=== PATIENT | female | born 2000 | race American Indian/Alaskan Native ===

== ENCOUNTER 2018-05-17 20:17 | Emergency (ER) | payer SELFPAY ==
[2018-05-17] MEDS ORDERED: NACL 0.9% 1000 ML 1,000 ML IV ONE (20:28)
[2018-05-17 21:03] LABS: Bacteria,Urine 1+ /HPF (Negative); Bilirubin,Urine NEG (Negative); Blood,Urine NEG (Negative); Color,Urine Yellow (Yellow); HCG Qualitative,Urine Negative (Negative); Protein,Urine <15 mg/dL mg/dL (Negative); Urobilinogen,Urine < 2.0 mg/dL (<2.0)
[2018-05-17 21:04] LABS: Basophils # (Auto) 0.1 K/mm3 (0.0-0.1); Basophils % (Auto) 0.9 % (0.0-1.8); Eosinophils # (Auto) 0.1 K/mm3 (0.0-0.4); Eosinophils % (Auto) 1.5 % (0.0-4.3); Hematocrit 37.2 % (30.3-42.9); Hemoglobin 12.5 gm/dl (10.1-14.3); Lymphocytes # (Auto) 1.6 K/mm3 (1.2-5.4); Lymphocytes % (Auto) 21.1 % (13.4-35.0); Mean Corpuscular HGB Conc 34 % (30-34); Mean Corpuscular Hemoglobin 31 pg (28-32); Mean Corpuscular Volume 94 fl (79-97); Monocytes % (Auto) 12.7 % (0.0-7.3); Platelet Count 288 K/mm3 (140-440); Red Blood Count 3.98 M/mm3 (3.65-5.03); Red Cell Distribution Width 14.3 % (13.2-15.2)
[2018-05-17 21:17] LABS: Alanine Aminotransferase 21 units/L (7-56); Albumin 4.2 g/dL (3.9-5); BUN/Creatinine Ratio 20; Blood Urea Nitrogen 12 mg/dL (7-17); Calcium 9.7 mg/dL (8.4-10.2); Hemolysis Index 7; Lipase 25 units/L (13-60)
[2018-05-17] MEDS ORDERED: MORPHINE IV ONE (21:19)
[2018-05-17] MEDS ORDERED: ZOFRAN IV ONE ×2 (21:19→22:52)
[2018-05-17] MEDS ORDERED: DILAUDID IV ONE (22:52)
--- NOTE | 2018-05-18 00:26 | Ultrasound Report ---
FINAL REPORT EXAM: US ABDOMEN LIMITED HISTORY: RUQ abd pain TECHNIQUE: Routine imaging was obtained of the right upper quadrant. FINDINGS: The gallbladder reveals generalized wall thickening with very small echogenic foci in the neck. There is a positive Matthew sign. The gallbladder wall thickness is 2.7 mm. The common bile duct is normal caliber 5.4. The liver is normal in size and echotexture. The pancreas is normal size and echotexture. The right kidney is normal size contour and echotexture. There is no evidence of hydronephrosis. Free fluid is not seen. IMPRESSION: Generalized wall thickening with very small stones in the neck of the gallbladder. Positive Matthew sign suggesting acute cholecystitis. Normal biliary tree.
--- NOTE | 2018-05-18 01:07 | Emergency Department Report ---
ED Abdominal Pain HPI - General Chief Complaint: Abdominal Pain Stated Complaint: NAUSEOUS RIB PAIN STOMACH Time Seen by Provider: 05/17/18 21:09 Source: patient Mode of arrival: Ambulatory Limitations: No Limitations - History of Present Illness Initial Comments: Previously healthy 21-year-old woman with development of right upper quadrant abdominal pain, which she describes as progressive, achy, constant, and is now severe, being 10 out of 10, with some mild radiation to back, and some discomfort with deep inspiration. She has been nauseated, with some retching, no diarrhea. She has not had any fever chills or diaphoresis, no urinary symptoms, no prior history of abdominal discomfort, no GERD, no gallbladder disease, and no history of alcohol abuse. She ate normal meals last night, with shrimp, asparagus, and this is not unusual for her. Past medical history is significant for bipolar disorder, but she stopped taking medications approximately 4 months ago, reports that she's been doing very well, and primary issue still with anger, and less so with depression. She has been stable recently, has not been seriously depressed. last menstrual cycle was brief, spotty, lasting only 2-3 days, 2 weeks ago, and she normally has regular menstrual cycles. She does not use contraception, and is trying to get . Onset/Timin -: Sudden, hour(s) Location: RUQ, epigastric Radiation: RUQ Migration to: RUQ Severity scale (0 -10): 10 Quality: cramping, aching, sharp Consistency: constant, other (waxing and waning features) Improves With: nothing Worsens With: eating Associated Symptoms: nausea, vomiting. denies: diarrhea, fever, chills - Related Data LMP Date: 04/29/18 (spine, 2-3 days) Previous Rx's Medication Instructions Recorded Last Taken Type Ondansetron [Zofran ODT TAB] 8 mg PO Q8HR #10 tab.rapdis 05/18/18 Unknown Rx metroNIDAZOLE [Flagyl] 500 mg PO Q8HR #21 tablet 05/18/18 Unknown Rx oxyCODONE /ACETAMINOPHEN [Percocet 1 tab PO Q6HR PRN #20 tablet 05/18/18 Unknown Rx 5/325] Allergies Allergy/AdvReac Type Severity Reaction Status Date / Time amoxicillin Allergy Unknown Verified 05/17/18 20:27 Penicillins Allergy Unknown Verified 05/17/18 20:27 ED Review of Systems ROS: Stated complaint: NAUSEOUS RIB PAIN STOMACH Other details as noted in HPI Constitutional: denies: chills, fever ENT: denies: ear pain, throat pain Respiratory: denies: cough, shortness of breath, wheezing Cardiovascular: denies: chest pain, palpitations Endocrine: no symptoms reported Gastrointestinal: as per HPI, abdominal pain, nausea, vomiting. denies: diarrhea Genitourinary: denies: urgency, dysuria, discharge Musculoskeletal: denies: back pain, joint swelling, arthralgia Skin: denies: rash, lesions Neurological: denies: headache, weakness, paresthesias Psychiatric: depression (stable, bipolar) Hematological/Lymphatic: denies: easy bleeding ED Past Medical Hx - Past Medical History Hx Psychiatric Treatment: Yes (bipolar) - Surgical History Past Surgical History?: No - Social History Smoking Status: Current Every Day Smoker Substance Use Type: Alcohol, Marijuana - Medications Home Medications: Home Medications Medication Instructions Recorded Confirmed Last Taken Type Ondansetron [Zofran ODT TAB] 8 mg PO Q8HR #10 tab.rapdis 05/18/18 Unknown Rx metroNIDAZOLE [Flagyl] 500 mg PO Q8HR #21 tablet 05/18/18 Unknown Rx oxyCODONE /ACETAMINOPHEN [Percocet 1 tab PO Q6HR PRN #20 tablet 05/18/18 Unknown Rx 5/325] ED Physical Exam - General Limitations: No Limitations General appearance: alert, in distress - Head Head exam: Present: atraumatic, normocephalic - Eye Eye exam: Present: normal appearance, PERRL - ENT ENT exam: Present: normal exam, mucous membranes moist - Neck Neck exam: Present: normal inspection, full ROM. Absent: tenderness - Respiratory Respiratory exam: Present: normal lung sounds bilaterally. Absent: respiratory distress, wheezes, rales - Cardiovascular Cardiovascular Exam: Present: regular rate, normal heart sounds - GI/Abdominal GI/Abdominal exam: Present: soft, tenderness (right upper quadrant and epigastrium), guarding, normal bowel sounds. Absent: rebound, rigid - Rectal Rectal exam: Present: deferred - Extremities Exam Extremities exam: Present: normal inspection - Back Exam Back exam: Present: normal inspection. Absent: CVA tenderness (R), CVA tenderness (L) - Neurological Exam Neurological exam: Present: alert, oriented X3. Absent: motor sensory deficit - Psychiatric Psychiatric exam: Present: normal affect, normal mood, anxious - Skin Skin exam: Present: warm, dry ED Course Vital Signs 05/17/18 20:22 Temperature 36.9 C Pulse Rate 92 H Respiratory 20 Rate Blood Pressure 121/79 O2 Sat by Pulse 98 Oximetry ED Medical Decision Making - Lab Data Result diagrams: 05/17/18 20:50 05/17/18 20:50 - Radiology Data Radiology results: report reviewed Right upper quadrant abdominal ultrasound compatible with acute cholecystitis with small echogenic stones, rated at the neck of the gallbladder, positive Matthew sign, with gallbladder wall at upper limits at 2.7 mm, but without pericolic fluid. Common bile duct is normal, liver is normal size, pancreas is normal right kidney is normal. No hydronephrosis. - Medical Decision Making Patient has acute cholecystitis, but stable laboratory evaluation, unremarkable ultrasound, with stones in the gallbladder neck, but no significant gallbladder wall thickening, no pericolic fluid, and no bile duct dilatation. She is clinically stable, and can be managed for her pain at home, with a bland diet, analgesics and antiemetics. On-call surgeon, Dr. Ireland consulted, and he recommends outpatient management, FOLLOW-up, with HIDA scan to be performed on an outpatient basis. - Differential Diagnosis cholecystitis, pyelonephritis, gastritis, gastroenteritis Critical Care Time: No Critical care attestation.: If time is entered above; I have spent that time in minutes in the direct care of this critically ill patient, excluding procedure time. ED Disposition Clinical Impression: Acute cholecystitis due to biliary calculus Disposition: TO HOME OR SELFCARE Is pt being admited?: No Does the pt Need Aspirin: No Condition: Stable Instructions: Abdominal Pain (ED), Cholecystitis (ED) Additional Instructions: We have evaluated U for abdominal pain, and diagnosed U with acute cholecystitis , which is pain coming from the gallbladder with small gallstones. You're stable for discharge home, but you should follow with our on-call surgeon , Dr. Ireland, in the office for further follow-up, and he will perform additional testing, and determine the best way to treat you from there. Contact the office in the morning, once it opens, at 10:30 AM, to make an appointment for follow-up examination. Review give an you copies of your ultrasound results and lab results, take these with you to the office. Drink primarily liquids, which are rich and electrolyte over the next day or 2 until your pain is better, and her nausea has begun to subside. This includes Pedialyte, soups, broths, or sports drinks with moderate calories, such as Gatorade G2. Once her abdominal pain has subsided substantially, you can begin eating solid foods, but she should avoid spicy foods, fatty foods, fried foods, and heavy meat such as red meats or pork. Chicken and fish should be okay. Prescriptions: metroNIDAZOLE [Flagyl] 500 mg PO Q8HR #21 tablet Ondansetron [Zofran ODT TAB] 8 mg PO Q8HR #10 tab.rapdis oxyCODONE /ACETAMINOPHEN [Percocet 5/325] 1 tab PO Q6HR PRN #20 tablet PRN Reason: Pain Referrals: ANN IRELAND MD [Staff Physician] - 3-5 Days Time of Disposition: 01:24
[2018-05-18 01:13] VITALS: BP 124/85
[2018-05-18] MEDS ORDERED: FLAGYL PO ONE (01:25)
== END 2018-05-18 01:52 | disposition home or self-care (01) ==
LOC: EDSEX → ED 20:17
DX: K80.42 Calculus of bile duct with acute cholecystitis without obstruction (principal); F31.9 Bipolar disorder, unspecified; F17.200 Nicotine dependence, unspecified, uncomplicated; F12.10 Cannabis abuse, uncomplicated; Z88.1 Allergy status to other antibiotic agents; Z88.0 Allergy status to penicillin
CPT/HCPCS: 36415; 76705; 80053; 81001; 81025; 83690; 85025; 85379; 96361; 96374; 96375; 96376; 99284; J1170; J2270; J2405; J7030

== ENCOUNTER 2018-07-07 17:02 | Emergency (ER) | payer SELFPAY ==
[2018-07-07 17:58] LABS: HCG Qualitative,Urine Negative (Negative)
[2018-07-07 17:59] LABS: Bilirubin,Urine NEG (Negative); Blood,Urine NEG (Negative); Color,Urine Yellow (Yellow); Protein,Urine <15 mg/dL mg/dL (Negative); Urobilinogen,Urine < 2.0 mg/dL (<2.0)
[2018-07-07 18:42] LABS: Basophils # (Auto) 0.1 K/mm3 (0.0-0.1); Basophils % (Auto) 1.3 % (0.0-1.8); Eosinophils # (Auto) 0.2 K/mm3 (0.0-0.4); Eosinophils % (Auto) 2.6 % (0.0-4.3); Hematocrit 35.8 % (30.3-42.9); Hemoglobin 11.9 gm/dl (10.1-14.3); Lymphocytes # (Auto) 2.1 K/mm3 (1.2-5.4); Lymphocytes % (Auto) 36.8 % (13.4-35.0); Mean Corpuscular HGB Conc 33 % (30-34); Mean Corpuscular Hemoglobin 31 pg (28-32); Mean Corpuscular Volume 93 fl (79-97); Monocytes # (Auto) 0.6 K/mm3 (0.0-0.8); Monocytes % (Auto) 10.5 % (0.0-7.3); Platelet Count 292 K/mm3 (140-440); Red Blood Count 3.85 M/mm3 (3.65-5.03); Red Cell Distribution Width 14.5 % (13.2-15.2)
[2018-07-07 19:13] LABS: Alanine Aminotransferase 22 units/L (7-56); Albumin 4.1 g/dL (3.9-5); BUN/Creatinine Ratio 25; Blood Urea Nitrogen 15 mg/dL (7-17); Calcium 9.9 mg/dL (8.4-10.2); Hemolysis Index 5
[2018-07-07 22:19] VITALS: BP 108/57
[2018-07-07] MEDS ORDERED: MOTRIN PO ONE (22:35)
[2018-07-07] MEDS ORDERED: ULTRAM PO ONE (22:35)
--- NOTE | 2018-07-07 22:44 | Emergency Department Report ---
HPI - General Chief Complaint: Abdominal Pain Time Seen by Provider: 07/07/18 22:26 - HPI HPI: Room 18 The patient is a 18-year-old female presenting with a chief complaint of right quadrant abdominal pain. The patient states for the past she's had pain in the right upper quadrant. The patient states eating fried and fatty foods brings on the pain. Patient denies nausea or vomiting but admits to diarrhea. Patient denies any history of fever. The patient states the pain feels the same as when she was told she had gallstones several months ago. Patient also complains of left lower dental pain. Patient gives her pain a score 7/10. Location: [See above] Duration: 2 Months Quality: Pain Severity: 7/10 Modifying factors: [see above] Context: [see above] Mode of transportation: [not driving] ED Past Medical Hx - Past Medical History Previous Medical History?: Yes Hx Psychiatric Treatment: Yes (bipolar) - Surgical History Past Surgical History?: No - Family History Family history: no significant - Social History Smoking Status: Current Some Day Smoker Substance Use Type: Alcohol (occasional), Marijuana - Medications Home Medications: Home Medications Medication Instructions Recorded Confirmed Last Taken Type Ondansetron [Zofran ODT TAB] 8 mg PO Q8HR #10 tab.rapdis 05/18/18 Unknown Rx metroNIDAZOLE [Flagyl] 500 mg PO Q8HR #21 tablet 05/18/18 Unknown Rx oxyCODONE /ACETAMINOPHEN [Percocet 1 tab PO Q6HR PRN #20 tablet 05/18/18 Unknown Rx 5/325] HYDROcodone/APAP 5-325 [[place] 1 each PO Q6HR PRN #14 tablet 07/08/18 Unknown Rx 5/325] Ibuprofen [Motrin 800 MG tab] 800 mg PO Q8HR PRN #20 tablet 07/08/18 Unknown Rx ED Review of Systems ROS: Stated complaint: FLANK PAIN/TOOTHACHE Other details as noted in HPI Constitutional: denies: fever Eyes: denies: eye pain ENT: dental pain Respiratory: no symptoms reported Cardiovascular: denies: chest pain Endocrine: no symptoms reported Gastrointestinal: abdominal pain, diarrhea. denies: nausea, vomiting Genitourinary: abnormal menses. denies: dysuria Musculoskeletal: denies: back pain Neurological: headache Physical Exam - Physical Exam Vital Signs: Vital Signs 07/07/18 07/07/1807/07/18 17:05 21:19 22:19 Temperature 97.5 F L 98.4 F Pulse Rate 64 60 Respiratory 18 16 16 Rate Blood Pressure 122/87 108/57 O2 Sat by Pulse 99 100 100 Oximetry Physical Exam: GENERAL: The patient is well-developed well-nourished female sitting on stretcher not appearing to be in acute distress. [] HEENT: Normocephalic. Atraumatic. Extraocular motions are intact. [place] tooth eruption eruption posterior left lower NECK: Supple. Trachea midline CHEST/LUNGS: Clear to auscultation. There is no respiratory distress noted. HEART/CARDIOVASCULAR: Regular. There is no tachycardia. There is no gallop rub or murmur. ABDOMEN: Abdomen is soft, with moderate discomfort to palpation in the right upper quadrant and midepigastric region. It is no tenderness elsewhere in the abdomen. Patient has normal bowel sounds. There is no abdominal distention. SKIN: There is no rash. There is no edema. There is no diaphoresis. NEURO: The patient is awake, alert, and oriented. The patient is cooperative. The patient has normal speech MUSCULOSKELETAL: There is no evidence of acute injury. ED Course Vital Signs 07/07/18 07/07/18 07/07/18 17:05 21:19 22:19 Temperature 97.5 F L 98.4 F Pulse Rate 64 60 Respiratory 18 16 16 Rate Blood Pressure 122/87 108/57 O2 Sat by Pulse 99 100 100 Oximetry ED Medical Decision Making - Lab Data Result diagrams: 07/07/18 18:31 07/07/18 18:31 Laboratory Tests 07/07/18 07/07/18 07/07/18 17:34 18:31 18:31 WBC 5.8 RBC 3.85 Hgb 11.9 Hct 35.8 MCV 93 MCH 31 MCHC 33 RDW 14.5 Plt Count 292 Lymph % (Auto) 36.8 H [place] % (Auto) 10.5 H Eos % (Auto) 2.6 Baso % (Auto) 1.3 Lymph # 2.1 [place] # 0.6 Eos # 0.2 Baso # 0.1 Seg Neutrophils % 48.8 Seg Neutrophils # 2.8 Sodium 142 Potassium 4.5 Chloride 103.4 Carbon Dioxide 25 Anion Gap 18 BUN 15 Creatinine 0.6 L Estimated GFR > 60 BUN/Creatinine Ratio 25 Glucose 72 Calcium 9.9 Total Bilirubin < 0.20 AST 20 ALT 22 Alkaline Phosphatase 100 Total Protein 7.2 Albumin 4.1 Albumin/Globulin Ratio 1.3 Urine Color Yellow Urine Turbidity Clear Urine pH 7.0 Ur Specific [place] 1.020 Urine Protein <15 mg/dl Urine Glucose (UA) Neg Urine Ketones Neg Urine Blood Neg Urine Nitrite Neg Ur Reducing Substances Not Reportable Urine Bilirubin Neg Urine Ictotest Not Reportable Urine Urobilinogen < 2.0 Ur Leukocyte Esterase Neg Urine WBC (Auto) 1.0 Urine RBC (Auto) 2.0 U Epithel Cells (Auto) 1.0 Urine HCG, Qual Negative - Radiology Data Radiology results: report reviewed (right upper quadrant ultrasound), image reviewed (right upper quadrant ultrasound) Right upper quadrant ultrasound (read by radiologist)-no evidence of cholelithiasis. Normal ultrasound - Differential Diagnosis symptomatic cholelithiasis, cholecystitis, wisdom tooth eruption Critical care attestation.: If time is entered above; I have spent that time in minutes in the direct care of this critically ill patient, excluding procedure time. ED Disposition Clinical Impression: Pain, dental, Abdominal pain Disposition: TO HOME OR SELFCARE Is pt being admited?: No Does the pt Need Aspirin: No Condition: Stable Instructions: Abdominal Pain (ED) Additional Instructions: Return to the emergency department immediately should you develop worsening symptoms, fever, inability to tolerate food or liquid or any other concerns. Prescriptions: HYDROcodone/APAP 5-325 [[place] 5/325] 1 each PO Q6HR PRN #14 tablet PRN Reason: Pain Ibuprofen [Motrin 800 MG tab] 800 mg PO Q8HR PRN #20 tablet PRN Reason: Pain, Moderate (4-6) Referrals: PRIMARY CARE, [Primary Care Provider] - 3-5 Days [facility] [Outside] - 3-5 Days Time of Disposition: 03:07
--- NOTE | 2018-07-08 03:02 | Ultrasound Report ---
FINAL REPORT EXAM: US ABDOMEN LIMITED HISTORY: right upper quadrant pain TECHNIQUE: Real-time sonography was performed of the right upper quadrant and images are submitted for interpretation. PRIORS: 05/17/2018 FINDINGS: The liver has a normal homogeneous echotexture without focal lesions. The gallbladder appears normal without stones. There is no evidence of biliary dilatation, the common bile duct measures 4 millimeters. The pancreas has a normal echogenicity and appearance. The visualized segments of the abdominal aorta and inferior vena cava appear normal. The right kidney appears normal in size, shape and echogenicity, measuring 10.6 x 5.3 x 6.2 cm. IMPRESSION: Normal right upper quadrant ultrasound. No evidence of cholelithiasis.
== END 2018-07-08 03:23 | disposition home or self-care (01) ==
LOC: ED 17:02
DX: R10.11 Right upper quadrant pain (principal); K08.89 Other specified disorders of teeth and supporting structures; F31.9 Bipolar disorder, unspecified; F17.200 Nicotine dependence, unspecified, uncomplicated; F12.10 Cannabis abuse, uncomplicated; Z88.1 Allergy status to other antibiotic agents
CPT/HCPCS: 36415; 76705; 80053; 81001; 81025; 85025; 93005; 93010

== ENCOUNTER 2018-08-16 12:04 | Emergency (ER) | payer SELFPAY ==
[2018-08-16 12:12] VITALS: BP 113/67
[2018-08-16 12:53] LABS: Bilirubin,Urine NEG (Negative); Blood,Urine SM (Negative); Color,Urine Yellow (Yellow); Mucus,Urine FEW /HPF; Protein,Urine <15 mg/dL mg/dL (Negative); Urobilinogen,Urine < 2.0 mg/dL (<2.0)
[2018-08-16 12:54] LABS: HCG Qualitative,Urine Negative (Negative)
== END 2018-08-16 15:40 | disposition left against medical advice (07) ==
LOC: ED 12:04
DX: O26.859 Spotting complicating pregnancy, unspecified trimester (principal); Z53.21 Procedure and treatment not carried out due to patient leaving prior to being seen by health care provider
CPT/HCPCS: 81001; 81025

== ENCOUNTER 2019-05-29 14:11 | Emergency (ER) | payer SELFPAY ==
--- NOTE | 2019-05-29 14:18 | Event Note ---
ED Screening Note ED Screening Note: sore on lip concerned for herpes not painful bipolar needs li refill lmp 05/16 This initial assessment/diagnostic orders/clinical plan/treatment(s) is/are subject to change based on patients health status, clinical progression and re- assessment by fellow clinical providers in the ED. Further treatment and workup at subsequent clinical providers discretion. Patient/guardian urged not to elope from the ED as their condition may be serious if not clinically assessed and managed. Initial orders include: eval acc
--- NOTE | 2019-05-29 17:03 | Emergency Department Report ---
Chief Complaint: Skin/Abscess/Foreign Body Stated Complaint: OUTBREAK ON FACE Time Seen by Provider: 05/29/19 14:17 - HPI History of Present Illness: This is a 19-year-old female who presents to ED complaining of upper lip abrasion that she noticed 2 days ago. Patient denies any painful sore and states that she scratched it and had break so her upper lip. Patient also states that she wants STD screening and she walked in on her boyfriend having sex with another female. She denies any symptoms such as fevers/nausea/vomiting/abdominal pain/pelvic pain/vaginal discharge/vaginal itching or any lesions. - ROS Review of Systems: As noted in HPI - Exam Physical Exam: Gen: Alert and Oriented 3 Skin: Mild upper lip abrasion, nonbleeding, no other lesions no rash noted. Abdominal: Nontender to palpation, MSE screening note: Focused history and physical exam performed. Due to findings the following was ordered: ED Medical Decision Making - Medical Decision Making 19-year-old female presents with lip abrasion Zovirax given for 4 lip abrasion. Discussed the patient SCD is not medical emergency and can be seen outpatient. Patient understands instructions and states she will follow up. Referrals given to patient with also medical clinic as well as primary care physician referrals. Patient was not exhibiting any symptoms prior to or during the ED stay. ED Disposition for MSE Clinical Impression: Lip abrasion, Screening for STD (sexually transmitted disease) Disposition: - TO HOME OR SELFCARE Is pt being admited?: No Does the pt Need Aspirin: No Condition: Stable Instructions: Sexually Transmitted Diseases (ED), Abrasion (ED) Additional Instructions: Make sure to follow up with the primary care physician as discussed. Follow-up with outside medical clinic for STD screening. Take all your medications as you've been prescribed. If you have any worsening symptoms or develop new symptoms please return to ED immediately. Prescriptions: Acyclovir [Zovirax] 1 applic TP TID #1 oint...g. Referrals: MARCUS GRAVES MD [Primary Care Provider] - 3-5 Days [facility] [Outside] - 3-5 Days [facility] [Outside] - 3-[address] [facility] [place] [Outside] - 3-5 Days [facility] [Outside] - 3-5 Days Forms: Work/School Release Form(ED) Time of Disposition: 17:02
[2019-05-29 17:11] VITALS: BP 133/93
== END 2019-05-29 17:22 | disposition home or self-care (01) ==
LOC: ED 14:11
DX: S00.511A Abrasion of lip, initial encounter (principal); Z11.3 Encounter for screening for infections with a predominantly sexual mode of transmission; W50.4XXA Accidental scratch by another person, initial encounter; Y93.89 Activity, other specified; Y92.89 Other specified places as the place of occurrence of the external cause; Y99.8 Other external cause status
CPT/HCPCS: 99282